=== PATIENT | male | born 1955 | race Caucasian/White ===

== ENCOUNTER → 2023-07-31 09:00 | Outpatient (REF) | payer OTHER, SELFPAY | LOC: DHCBS MAIN 09:00 | PROVIDERS: ATTENDING PHYSICIAN Internal Medicine Interventional Cardiology; FAMILY PHYSICIAN Family Medicine | DX: I42.9 Cardiomyopathy, unspecified (principal) | CPT/HCPCS: 93306 ==

== ENCOUNTER → 2023-07-31 10:17 | Outpatient (REF) | payer OTHER, SELFPAY | LOC: RCS 10:17 | PROVIDERS: ATTENDING PHYSICIAN Internal Medicine Interventional Cardiology; FAMILY PHYSICIAN Family Medicine | DX: I48.0 Paroxysmal atrial fibrillation (principal); I49.3 Ventricular premature depolarization; I25.10 Atherosclerotic heart disease of native coronary artery without angina pectoris; R00.2 Palpitations; I42.9 Cardiomyopathy, unspecified | CPT/HCPCS: 93225; 93226 ==

== ENCOUNTER 2023-08-24 06:38 | Day surgery (SDC) | payer OTHER, SELFPAY ==
[2023-08-24] VITALS (9 sets, daily range): BP systolic 129–152; BP diastolic 67–98; BMI 26.8
[2023-08-24 07:39] LABS: Hematocrit 41.7 % (39.0-52.0); Hemoglobin 14.4 g/dL (13.0-18.0); Mean Corp Hgb Conc. 34.5 g/dL (33.0-37.0); Mean Corpuscular Hgb 38.6 pg (27.0-31.0); Mean Corpuscular Volume 111.8 fL (80.0-94.0); Mean Platelet Volume 9.9 fL (7.4-10.4); Platelet Count 157 10^3/uL (130-400); Red Blood Cell Count 3.73 10^6/uL (4.70-6.10); Red Cell Dist. Width 13.5 % (11.5-14.5); White Blood Cell Count 5.3 10^3/uL (4.8-10.8)
[2023-08-24] MEDS: LOW STRENGTH ASPIRIN 81 MG PO (07:41)
[2023-08-24] MEDS: NSS 254 ML IV (07:42)
[2023-08-24 07:57] LABS: Blood Urea Nitrogen 17 mg/dl (9-20); Calcium 8.7 mg/dl (8.4-10.2); Carbon Dioxide 26 mmol/L (22-30); Chloride 109 mmol/L (98-107); Estimated Creatinine Clearance 89 ml/min; Glucose 84 mg/dl (70-99); Sodium 139 mmol/L (135-145); eGFR > 60.00
--- NOTE | 2023-08-24 11:07 | ITS.CL.CATH ---
[facility] - Catheterization
Cardiac Catheterization
Procedure Report:
RIGHT AND LEFT HEART CATHETERIZATION
Date of Procedure: August 24, 2023
Referring: Dr. Adam Herrera
PROCEDURES:
1. Right heart catheterization
2. Left heart catheterization with coronary and single-plane left ventriculography
3. Graft angiography
INDICATION: This is a 68-year-old gentleman with a past medical history notable for frequent symptomatic PVCs and history of posterior mitral leaflet prolapse with development of severe mitral regurgitation by transthoracic and transesophageal
echocardiography. He underwent mitral valve repair and single-vessel coronary artery bypass grafting on 04/10/2017 with SVG-PLB and repair with [place] needle cords to P2 x 2 and a 32 mm segment annuloplasty ring. His postoperative course was
complicated by paroxysmal atrial fibrillation and he was started on oral anticoagulation. He represented to [facility] on 04/26/2017 with hypotension and a large bloody pericardial effusion. His postoperative echocardiogram was notable
for an estimated ejection fraction of 50% with mild mitral regurgitation and possible SUSANNA. He has never experienced any chest discomfort, however, his LVEF has slowly declined over the past 12 to 18 months. Echocardiography suggested 'at least
moderate' eccentric mitral regurgitation. The most recent echocardiogram from 07/31/2023 was notable for an estimated ejection fraction of 30-35% with akinesis of the basal and inferoseptum and mild to moderate eccentric mitral regurgitation. He
also had a Holter monitor performed with 69,162 PVCs recorded over the 48 hours of monitoring (32% of QRS complexes). He is now referred for right and left heart catheterization to further evaluate the etiology of the decline in his LVEF and to
assess severity of mitral regurgitation. He has generally been feeling well with no chest pain or shortness of breath. He walks somewhere between 6000 and 8000 steps most days and generally feels well
ACCESS: Right common femoral artery using ultrasound guidance and micropuncture
HEMODYNAMICS (mmHg) :
RA (m) : 18
RV (s/d, 16) : 48/12, 16
PA (s/d,m) : 53/25, 36
PCWP (m) : 31 with V waves to 44
AO (s/d, m) : 158/74, 102
LV (s/d) : 149/16
LVEDP (m) : 28
Estimated Lorenzo Cardiac Output: 5.4 L/min and Cardiac Index: 2.7 L/min/M-2
Systemic vascular resistance: 15.6 Wood units or 1244 [id number](-5)
Pulmonary vascular resistance: 0.93 Wood units or 70 [id number](-5)
CORONARY ANGIOGRAPHY
Dominance: Right
LEFT MAIN: Normal
LEFT ANTERIOR DESCENDING: There is moderate coronary calcification in the LAD. The LAD arises normally from the left main and runs in the anterior interventricular groove with only minor irregularities over its course. The LAD wraps completely
around the apex supplying a portion of the inferior wall. Faint left to right collaterals are noted.
CIRCUMFLEX: The circumflex is a medium caliber nondominant vessel with a 65-70% stenosis noted in the mid circumflex just before the bifurcation of OM1 and OM 2.
RIGHT CORONARY ARTERY: Subtotal proximal occlusion that has been chronic in nature since 2017. The PDA is small. There is no competitive flow noted from the saphenous vein graft
GRAFT ANGIOGRAPHY:
1. SVG-RCA: 100% flush occluded.
LEFT VENTRICULOGRAPHY: Left ventriculography is performed in an LUI projection. The digital single-plane left ventricular ejection fraction is visually estimated at 35-40% with posterior basal, diaphragmatic inferior, and moderate anterolateral
hypokinesis. There is 3+ mitral regurgitation to a dilated left atria filling back to the pulmonary veins.
RADIATION SUMMARY: Fluoro Time (min): 7.7, Dose (mGy): 288, DAP (Gy.cm2) : 29.2
Closure Device: 6 [place] Angio-Seal RFA
CONCLUSION
1. Coronary artery disease as described above. The SVG to the RCA is 100% occluded with [place] vessel coronary disease in the proximal RCA and small caliber diseased PDA. There is been progression of coronary disease in the mid circumflex before
the bifurcation of OM1 and OM 2 with 65-70% stenosis now noted. The LAD is a moderate to large caliber vessel that appears free of significant obstructive coronary disease
2. Moderate left ventricular systolic dysfunction with a visually estimated ejection fraction of 35-40%
3. 3+ mitral regurgitation to a dilated left atria
RECOMMENDATIONS
1. Patient will be scheduled for [facility] next week to assess severity of mitral regurgitation. I would consider referral for surgical evaluation if his mitral regurgitation is felt to be severe. My clinical sense is that his mitral regurgitation will
likely be found to be severe and that it is likely the cause of his falling LVEF. However, the KISHORE should help considerably in this evaluation.
2. If the mitral regurgitation is not felt be critical then will discuss with EP service to see if he would benefit from biventricular device and/or PVC ablation
3. His coronary disease in the circumflex has progressed, however, he is asymptomatic of any anginal symptoms.
Copy to: Dr. Adam Herrera
== END 2023-08-24 13:17 | disposition home or self-care (01) ==
LOC: CATH 06:38
PROVIDERS: ATTENDING PHYSICIAN Internal Medicine Interventional Cardiology; FAMILY PHYSICIAN Family Medicine
DX: I25.10 Atherosclerotic heart disease of native coronary artery without angina pectoris (principal); I34.0 Nonrheumatic mitral (valve) insufficiency; Z95.1 Presence of aortocoronary bypass graft; I25.82 Chronic total occlusion of coronary artery; I48.0 Paroxysmal atrial fibrillation; Z79.01 Long term (current) use of anticoagulants
CPT/HCPCS: 80048; 85027; 93461; C1760; C1894; Q9967

== ENCOUNTER 2023-08-30 07:15 | Day surgery (SDC) | payer OTHER, SELFPAY ==
[2023-08-30 08:11] VITALS: BMI 27.1
== END 2023-08-30 10:48 | disposition home or self-care (01) ==
LOC: CATH 07:15
PROVIDERS: ATTENDING PHYSICIAN Internal Medicine Cardiovascular Disease; FAMILY PHYSICIAN Family Medicine; OTHER PHYSICIAN Internal Medicine Interventional Cardiology
DX: I08.3 Combined rheumatic disorders of mitral, aortic and tricuspid valves (principal); I48.0 Paroxysmal atrial fibrillation; I25.10 Atherosclerotic heart disease of native coronary artery without angina pectoris; Z95.1 Presence of aortocoronary bypass graft; E78.2 Mixed hyperlipidemia; Q21.12 Patent foramen ovale; Z79.82 Long term (current) use of aspirin
CPT/HCPCS: 93312; 93320; 93325

== ENCOUNTER → 2024-01-01 08:54 | Outpatient (REF) | payer OTHER, SELFPAY | LOC: RCS 08:54 | PROVIDERS: ATTENDING PHYSICIAN Internal Medicine Interventional Cardiology; FAMILY PHYSICIAN Family Medicine | DX: I42.0 Dilated cardiomyopathy (principal); I49.3 Ventricular premature depolarization; I34.0 Nonrheumatic mitral (valve) insufficiency; Z98.890 Other specified postprocedural states; I42.9 Cardiomyopathy, unspecified | CPT/HCPCS: 93225; 93226; 93306 ==

== ENCOUNTER → 2024-07-02 07:11 | Outpatient (REF) | payer OTHER, SELFPAY | LOC: RAD 07:11 | PROVIDERS: ATTENDING PHYSICIAN Family Medicine | DX: I65.23 Occlusion and stenosis of bilateral carotid arteries (principal) | CPT/HCPCS: 93880 ==

== ENCOUNTER → 2025-01-10 08:28 | Outpatient (REF) | payer OTHER, SELFPAY | LOC: RCS 08:28 | PROVIDERS: ATTENDING PHYSICIAN Internal Medicine Interventional Cardiology; FAMILY PHYSICIAN Family Medicine | DX: I49.3 Ventricular premature depolarization (principal) | CPT/HCPCS: 93225; 93226 ==

== ENCOUNTER → 2025-01-12 07:15 | Outpatient (REF) | payer OTHER, SELFPAY | LOC: RCS 07:15 | PROVIDERS: ATTENDING PHYSICIAN Internal Medicine Interventional Cardiology; FAMILY PHYSICIAN Family Medicine | DX: I42.9 Cardiomyopathy, unspecified (principal); I49.3 Ventricular premature depolarization | CPT/HCPCS: 93306 ==

== ENCOUNTER → 2025-04-09 14:39 | Outpatient (REF) | payer OTHER, SELFPAY | LOC: RCS 14:39 | PROVIDERS: ATTENDING PHYSICIAN Internal Medicine Hematology & Oncology; FAMILY PHYSICIAN Family Medicine; OTHER PHYSICIAN Internal Medicine Interventional Cardiology | DX: D45 Polycythemia vera (principal) | CPT/HCPCS: 93005 ==

== ENCOUNTER → 2025-04-28 15:14 | Outpatient (REF) | payer OTHER, SELFPAY | LOC: RAD 15:14 | PROVIDERS: ATTENDING PHYSICIAN Internal Medicine Critical Care Medicine; FAMILY PHYSICIAN Family Medicine | DX: J98.4 Other disorders of lung (principal) | CPT/HCPCS: 71046 ==